=== PATIENT | male | born 1950 | race Caucasian/White ===

== ENCOUNTER 2025-04-08 13:57 | Inpatient (IN) | payer MEDICARE, OTHER ==
[~2025-04-08] VITALS: Ht 165.1 cm; Wt 62.6 kg
[2025-04-08] MEDS ORDERED: ONDANSETRON HCL/PF 4 MG/2 ML VIAL ONE (14:33)
[2025-04-08] MEDS: ONDANSETRON HCL/PF 4 MG/2 ML VIAL IVP ONE (14:35)
[2025-04-08] MEDS: IV NS 0.9% 500 ML BAG IV ONE (14:35)
[2025-04-08 14:56] LABS: PLATELET COUNT (AUTO) 321 K/uL (150-450); RED BLOOD CELL COUNT(AUTO) 3.40 MIL/uL (4.5-6.0); RED CELL DISTRIBUTION WIDTH 20.3 % (11.5-15.0); WHITE BLOOD COUNT (AUTO) 6.0 K/uL (4.3-11.0)
[2025-04-08 14:59] LABS: CALCIUM, SERUM 9.1 mg/dL (8.5-10.1); CREATININE 3.0 mg/dL (0.6-1.3); SODIUM SERUM 141 mmol/L (136-145); UREA NITROGEN, BLOOD 45 mg/dL (7-18)
[2025-04-08 15:05] LABS: ASPARTATE AMINOTRANSFERASE 28 U/L (15-37); TOTAL PROTEIN, SERUM 7.7 g/dL (6.4-8.2)
[2025-04-08] MEDS ORDERED: PANTOPRAZOLE 40 MG VIAL IV ONE (15:30)
[2025-04-08] MEDS: PANTOPRAZOLE 80 MG in IV NS 0.9% 100 ML IV ONE (16:20)
[2025-04-08] MEDS ORDERED: ZOLPIDEM TARTRATE 5 MG TABLET PO PRN (17:00)
[2025-04-08] MEDS ORDERED: MAG HYDROX/AL HYDROX/SIMETH 30 ML UDC PO PRN (17:00)
[2025-04-08] MEDS ORDERED: ONDANSETRON HCL/PF 4 MG/2 ML VIAL IVP PRN (17:00)
[2025-04-08] MEDS ORDERED: Z GUARD REMEDY 4 OZ OINT TP PRN ×2 (17:00→18:15)
[2025-04-08] MEDS ORDERED: MAGNESIUM HYDROXIDE 30 ML UDC PO PRN (17:00)
[2025-04-08] MEDS: PANTOPRAZOLE 80 MG in IV NS 0.9% 500 ML IV ONE (17:20)
[2025-04-08 18:19] LABS: LYMPHOCYTES % (MANUAL) 4 % (16-48); MONOCYTES % (MANUAL) 2 % (0-11.0); NEUTROPHILS % (MANUAL) 94 (42-76); PLATELET ESTIMATE ADEQUATE
[2025-04-08 20:00] VITALS: BP 140/97; TEMP 97.7; O2SAT 95
[2025-04-08] MEDS: PANTOPRAZOLE 40 MG VIAL IV SCH (21:00)
[2025-04-08] MEDS: CEFEPIME 1 GM in IV D5W 50 ML IV SCH (21:30)
[2025-04-08 21:33] LABS: INR 1.85 (0.91-1.10)
[2025-04-09] VITALS (15 sets, daily range): BP systolic 118–149; BP diastolic 85–99; TEMP 97.6–98.6; O2SAT 97–100
[2025-04-09] MEDS ORDERED: ISOS60TA72 PO (09:50)
[2025-04-09] MEDS ORDERED: FURO20TA4 PO (09:50)
[2025-04-09] MEDS ORDERED: CARV6.252 PO (09:50)
[2025-04-09] MEDS ORDERED: HYDR-4077 PO (09:50)
[2025-04-09] MEDS ORDERED: ONDA4TAB11 PO (09:50)
[2025-04-09] MEDS ORDERED: IV NS 0.9% 1,000 ML IV PRN (11:30)
[2025-04-09 12:43] LABS: PLATELET COUNT (AUTO) 256 K/uL (150-450); RED BLOOD CELL COUNT(AUTO) 3.36 MIL/uL (4.5-6.0); RED CELL DISTRIBUTION WIDTH 21.3 % (11.5-15.0); WHITE BLOOD COUNT (AUTO) 6.3 K/uL (4.3-11.0)
[2025-04-09 13:05] LABS: ASPARTATE AMINOTRANSFERASE 42 U/L (15-37); CALCIUM, SERUM 8.7 mg/dL (8.5-10.1); CREATININE 3.1 mg/dL (0.6-1.3); SODIUM SERUM 141 mmol/L (136-145); TOTAL PROTEIN, SERUM 6.8 g/dL (6.4-8.2); UREA NITROGEN, BLOOD 54 mg/dL (7-18)
[2025-04-09] MEDS: POLYVINYL ALCOHOL 15 ML BOTTLE EACHEYE PRN (16:26)
[2025-04-09] MEDS: CARVEDILOL 6.25 MG TABLET PO SCH (17:00)
[2025-04-09] MEDS ORDERED: CEFTRIAXONE 1 G in IV D5W 50 ML IV SCH (21:00)
[2025-04-09 21:09] LABS: CREATININE, URINE 71.3 MG/DL (30.0-125.0); URINE SODIUM, RANDOM 48.0 mmol/l (40-220); URINE TOTAL PROTEIN 36.4 mg/dL (0-11.9)
[2025-04-09 21:16] LABS: APPEARANCE,URINE CLEAR (CLEAR); BLOOD, URINE 1+ Ery/uL (NEGATIVE); LEUKOCYTE ESTERASE ,URINE 3+ (NEGATIVE); NITRITE, URINE POSITIVE (NEGATIVE); UGLUCOSE NEGATIVE (NEGATIVE)
[2025-04-09 21:31] LABS: ADD URINE CULTURE YES
[2025-04-09] MEDS: IV NS 0.9% 1,000 ML IV ONE (21:50)
[2025-04-09] MEDS: OCTREOTIDE 50 MCG in IV NS 0.9% 50 ML IV ONE (21:58)
[2025-04-09 22:18] LABS: EOSINOPHIL,URINE None Seen
[2025-04-09] MEDS: CEFTRIAXONE 1 G in IV D5W 50 ML IV SCH (22:40)
[2025-04-09] MEDS: OCTREOTIDE 500 MCG in IV NS 0.9% 99 ML IV SCH (22:54)
[2025-04-10 08:00] VITALS: BP 129/94; TEMP 97.7; O2SAT 95
[2025-04-10 08:08] LABS: PLATELET COUNT (AUTO) 233 K/uL (150-450); RED BLOOD CELL COUNT(AUTO) 4.05 MIL/uL (4.5-6.0); RED CELL DISTRIBUTION WIDTH 20.0 % (11.5-15.0); WHITE BLOOD COUNT (AUTO) 5.3 K/uL (4.3-11.0)
[2025-04-10 08:22] LABS: INR 1.59 (0.91-1.10)
[2025-04-10 08:28] LABS: SERUM AMMONIA 44.0 umol/L (11-32)
[2025-04-10 08:52] LABS: ASPARTATE AMINOTRANSFERASE 46.0 U/L (15-37); CREATININE 3.3 mg/dL (0.6-1.3); PHOSPHORUS 4.6 mg/dL (2.5-4.9); SODIUM SERUM 146.0 mmol/L (136-145); TOTAL PROTEIN, SERUM 7.2 g/dL (6.4-8.2); UREA NITROGEN, BLOOD 53.0 mg/dL (7-18)
[2025-04-10 08:57] LABS: CREATINE KINASE, TOTAL 436.0 U/L (39-308)
[2025-04-10] MEDS: ISOSORBIDE MONONITRATE (30MG) 30 MG TAB.SR.24H PO SCH (09:02)
[2025-04-10 09:26] LABS: CALCIUM, SERUM 9.0 mg/dL (8.5-10.1)
[2025-04-10] MEDS: ALBUMIN 25% 25 GM in PREMIX 1 EA IV SCH (11:54)
[2025-04-10 16:00] VITALS: BP 118/90; TEMP 98.6; O2SAT 99
[2025-04-10] MEDS ORDERED: ALBUMIN 25% 12.5 GM/50 ML BOTTLE IV ONE (16:00)
[2025-04-10] MEDS: LACTULOSE 10 G/15 ML UDC (PYXIS) PO SCH (16:35)
[2025-04-10] MEDS: ALBUMIN 25% 12.5 GM in PREMIX 1 EA IV ONE (16:44)
[2025-04-10 20:00] VITALS: BP 117/88; TEMP 97.7; O2SAT 95
[2025-04-10] MEDS: ACETAMINOPHEN 325 MG TABLET PO PRN (22:56)
[2025-04-11 07:51] LABS: PLATELET COUNT (AUTO) 185 K/uL (150-450); RED BLOOD CELL COUNT(AUTO) 3.46 MIL/uL (4.5-6.0); RED CELL DISTRIBUTION WIDTH 20.8 % (11.5-15.0); WHITE BLOOD COUNT (AUTO) 4.4 K/uL (4.3-11.0)
[2025-04-11 08:00] VITALS: BP 104/79; TEMP 97.7; O2SAT 100
[2025-04-11 08:12] LABS: INR 1.77 (0.91-1.10)
[2025-04-11 08:45] LABS: ASPARTATE AMINOTRANSFERASE 34.0 U/L (15-37); CALCIUM, SERUM 8.6 mg/dL (8.5-10.1); CREATININE 3.2 mg/dL (0.6-1.3); SODIUM SERUM 145.0 mmol/L (136-145); TOTAL PROTEIN, SERUM 6.6 g/dL (6.4-8.2); UREA NITROGEN, BLOOD 55.0 mg/dL (7-18)
[2025-04-11 16:00] VITALS: BP_SYST 98; BP_SYST 99; BP_DIAS 75; BP_DIAS 77; TEMP 97.3; O2SAT 100; O2SAT 96
[2025-04-11 20:00] VITALS: BP 99/79; TEMP 97.7; O2SAT 98
[2025-04-12 07:09] LABS: PLATELET COUNT (AUTO) 197 K/uL (150-450); RED BLOOD CELL COUNT(AUTO) 3.78 MIL/uL (4.5-6.0); RED CELL DISTRIBUTION WIDTH 21.5 % (11.5-15.0); WHITE BLOOD COUNT (AUTO) 4.3 K/uL (4.3-11.0)
[2025-04-12 07:20] LABS: ASPARTATE AMINOTRANSFERASE 40.0 U/L (15-37); CALCIUM, SERUM 8.8 mg/dL (8.5-10.1); CREATININE 3.3 mg/dL (0.6-1.3); SODIUM SERUM 143.0 mmol/L (136-145); TOTAL PROTEIN, SERUM 6.5 g/dL (6.4-8.2); UREA NITROGEN, BLOOD 57.0 mg/dL (7-18)
[2025-04-12 07:30] VITALS: BP 106/54; TEMP 97.5; O2SAT 98
[2025-04-12] MEDS: ALBUMIN 25% 25 GM in PREMIX 1 EA IV SCH (12:18)
[2025-04-12 16:00] VITALS: BP 91/76; TEMP 97.3; O2SAT 96
[2025-04-12 20:00] VITALS: BP 91/77; TEMP 97.9; O2SAT 95
[2025-04-13 01:07] LABS: PTH, INTACT 40 pg/mL (15-65)
[2025-04-13 08:00] VITALS: BP 111/83; TEMP 98.1; O2SAT 99
[2025-04-13 09:22] VITALS: BP 111/83
[2025-04-13 10:35] LABS: PLATELET COUNT (AUTO) 211 K/uL (150-450); RED BLOOD CELL COUNT(AUTO) 3.95 MIL/uL (4.5-6.0); RED CELL DISTRIBUTION WIDTH 20.9 % (11.5-15.0); WHITE BLOOD COUNT (AUTO) 5.2 K/uL (4.3-11.0)
[2025-04-13 10:42] LABS: ASPARTATE AMINOTRANSFERASE 29.0 U/L (15-37); CALCIUM, SERUM 8.2 mg/dL (8.5-10.1); CREATININE 3.4 mg/dL (0.6-1.3); PHOSPHORUS 4.0 mg/dL (2.5-4.9); SODIUM SERUM 146.0 mmol/L (136-145); TOTAL PROTEIN, SERUM 5.9 g/dL (6.4-8.2); UREA NITROGEN, BLOOD 55.0 mg/dL (7-18)
[2025-04-14 15:09] LABS: *SPE A/G RATIO 1.0 (0.7-1.7); *SPE ALBUMIN 3.4 g/dL (2.9-4.4); *SPE ALPHA-1-GLOBULIN 0.3 g/dL (0.0-0.4); *SPE ALPHA-2-GLOBULIN 0.5 g/dL (0.4-1.0); *SPE BETA GLOBULIN 1.0 g/dL (0.7-1.3); *SPE GLOBULIN, TOTAL 3.3 g/dL (2.2-3.9); *SPE M-SPIKE Not Observed g/dL (Not Observed); *SPE PROTEIN TOTAL 6.7 g/dL (6.0-8.5); *SPEGAMMA GLOBULIN 1.5 g/dL (0.4-1.8)
== END 2025-04-13 15:15 | DRG 377 ==
LOC: ER 14:00 → MED 18:40
PROVIDERS: ADMIT Nurse Practitioner Acute Care
PROC: 30233N1 Transfusion of Nonautologous Red Blood Cells into Peripheral Vein, Percutaneous Approach (ICD-10-PCS; 2025-04-09)
PROC: 0DJ08ZZ Inspection of Upper Intestinal Tract, Via Natural or Artificial Opening Endoscopic (ICD-10-PCS; principal; 2025-04-09 19:20)
PROC: 0W9G3ZZ Drainage of Peritoneal Cavity, Percutaneous Approach (ICD-10-PCS; 2025-04-12)
DX: K29.71 Gastritis, unspecified, with bleeding (principal); G92.8 Other toxic encephalopathy; J15.69 Pneumonia due to other Gram-negative bacteria; N17.0 Acute kidney failure with tubular necrosis; R18.8 Other ascites; I13.0 Hypertensive heart and chronic kidney disease with heart failure and stage 1 through stage 4 chronic kidney disease, or unspecified chronic kidney disease; I50.9 Heart failure, unspecified; N39.0 Urinary tract infection, site not specified; E11.22 Type 2 diabetes mellitus with diabetic chronic kidney disease; D50.0 Iron deficiency anemia secondary to blood loss (chronic); K76.9 Liver disease, unspecified; N18.9 Chronic kidney disease, unspecified; E86.9 Volume depletion, unspecified; I48.91 Unspecified atrial fibrillation; I25.10 Atherosclerotic heart disease of native coronary artery without angina pectoris; R74.01 Elevation of levels of liver transaminase levels; Z95.0 Presence of cardiac pacemaker; I25.2 Old myocardial infarction
CPT/HCPCS: 36415; 49083; 71045-TC; 76770-TC; 80048-TC; 80053-TC; 80076-TC; 81001; 82140-TC; 82550-TC; 82553; 82570-TC; 83690-TC; 83735-TC; 83970; 84100-TC; 84155; 84165; 84300-TC; 85025-TC; 85027-TC; 85610-TC; 85730-TC; 86850-TC; 87086-TC; 97110-TC; 97112-TC; 97530-TC; A4216; A4223; G0378; J0692; J0696; J2354; J2405; J2470; J2704; J7030; J7040; J7050; J7060; P9016; P9047